=== PATIENT | female | born 1990 | race American Indian/Alaskan Native ===

== ENCOUNTER 2022-02-27 14:02 | Emergency (ER) | payer MEDICAID ==
[2022-02-27 14:18] VITALS: BP 142/76
== END 2022-02-27 19:00 | disposition left against medical advice (07) ==
LOC: ED 14:02
DX: R07.9 Chest pain, unspecified (principal); R05.9 Cough, unspecified; Z53.21 Procedure and treatment not carried out due to patient leaving prior to being seen by health care provider

== ENCOUNTER 2022-03-06 10:19 | Emergency (ER) | payer MEDICAID ==
--- NOTE | 2022-03-06 12:20 | XRay Report ---
XR chest routine 2V INDICATION / CLINICAL INFORMATION: cough COMPARISON: None available. FINDINGS: SUPPORT DEVICES: None. HEART / MEDIASTINUM: No significant abnormality. LUNGS / PLEURA: Lungs are clear. Costophrenic sulci are sharp. No pneumothorax. ADDITIONAL FINDINGS: No significant additional findings. IMPRESSION: 1. No acute findings. Signer Name: Wei Wick MD Signed: 03/06/2022 12:15 PM Workstation Name: [email or web address]
--- NOTE | 2022-03-06 12:49 | Emergency Department Report ---
- General Chief Complaint: Sore Throat Stated Complaint: EAR,THROAT,NOSE,CHEST HURTING Time Seen by Provider: 03/06/22 10:44 Source: patient Mode of arrival: Ambulatory Limitations: No Limitations - History of Present Illness Initial Comments: This is a 31-year-old female nontoxic, well nourished in appearance, no acute signs of distress presents to the ED with c/o of productive cough,earache, body aches, rhinorrhea, nasal congestion x several days. Patient describes productive cough as yellow mucus production. Patient denies any sick contacts. Stated is covid vaccinated. Patient denies any recent travels, long car, recent hospital stays. Patient denies any calf pain or calf tenderness. Patient denies any chest pain, short of breath, fever, chills, nausea, vomiting, hemoptysis, numbness, tingling, headache or stiff neck. Allergies to morphine. MD Complaint: cough, rhinorrhea, nasal congestion, sinus pain, other (earache) -: days(s) Severity: mild Severity scale (0 -10): 3 Quality: aching Consistency: constant Improves With: nothing Worsens With: nothing Associated Symptoms: rhinorrhea, nasal congestion, cough, ear pain. denies: fever, chills, myalgias, diaphoresis, headache, sore throat, stiff neck, chest pain, shortness of breath, abdominal pain, nausea, vomiting, diarrhea, dysuria, rash, confusion, right sweats, weight loss, epistaxis, hoarseness - Related Data Previous Rx's Medication Instructions Recorded Last Taken Type Amoxicillin [Amoxicillin TAB] 875 mg PO BID #20 tab 03/06/22 Unknown Rx Allergies Allergy/AdvReac Type Severity Reaction Status Date / Time morphine Allergy Unknown Verified 03/06/22 10:47 ED Review of Systems ROS: Stated complaint: EAR,THROAT,NOSE,CHEST HURTING Other details as noted in HPI Comment: All other systems reviewed and negative Constitutional: denies: chills, fever Eyes: denies: eye pain, eye discharge, vision change ENT: ear pain, congestion. denies: throat pain Respiratory: cough. denies: shortness of breath, wheezing Cardiovascular: denies: chest pain, palpitations Endocrine: no symptoms reported Gastrointestinal: denies: abdominal pain, nausea, diarrhea Genitourinary: denies: urgency, dysuria, discharge Musculoskeletal: denies: back pain, joint swelling, arthralgia Skin: denies: rash, lesions Neurological: denies: headache, weakness, paresthesias Psychiatric: denies: anxiety, depression Hematological/Lymphatic: denies: easy bleeding, easy bruising ED Past Medical Hx - Social History Smoking Status: Former Smoker Substance Use Type: Alcohol - Medications Home Medications: Home Medications Medication Instructions Recorded Confirmed Last Taken Type Amoxicillin [Amoxicillin TAB] 875 mg PO BID #20 tab 03/06/22 Unknown Rx ED Physical Exam - General Limitations: No Limitations General appearance: alert, in no apparent distress - Head Head exam: Present: atraumatic, normocephalic - Eye Eye exam: Present: normal appearance - ENT ENT exam: Present: normal exam, normal orophraynx - Expanded ENT Exam Expanded TM/Canal exam: Erythema: Right TM, Bulging: Right TM Mouth exam: Present: normal external inspection. Absent: drooling, trismus, muffled voice Teeth exam: Present: normal inspection Throat exam: Positive: normal inspection. Negative: tonsillar erythema, tonsillomegaly, tonsillar exudate, R peritonsillar mass, L peritonsillar mass - Neck Neck exam: Present: normal inspection, full ROM. Absent: tenderness, meningismus, lymphadenopathy - Respiratory Respiratory exam: Present: normal lung sounds bilaterally. Absent: respiratory distress, wheezes, rales, rhonchi, stridor, chest wall tenderness, accessory muscle use, decreased breath sounds, prolonged expiratory - Cardiovascular Cardiovascular Exam: Present: normal rhythm, normal heart sounds. Absent: irregular rhythm, systolic murmur, diastolic murmur, rubs, gallop - Extremities Exam Extremities exam: Present: full ROM - Back Exam Back exam: Present: full ROM - Neurological Exam Neurological exam: Present: alert, oriented X3, normal gait - Psychiatric Psychiatric exam: Present: normal affect, normal mood - Skin Skin exam: Present: warm, dry, intact, normal color. Absent: rash ED Course Vital Signs 03/06/22 10:43 Temperature 99.1 F Pulse Rate 120 H Respiratory 18 Rate Blood Pressure 145/73 [Left] O2 Sat by Pulse 99 Oximetry - Reevaluation(s) Reevaluation #1: 03/06/22 12:50 Patient is speaking in full sentences with no signs of distress noted. ED Medical Decision Making - Radiology Data [facility] [address] [place] [address] XRay Report Signed Patient: LATANYA MARISCAL MR#: [id number] : 1990 Acct:[id number] Age/Sex: 31 / F ADM Date: 03/06/22 Loc: ED Attending Dr: Ordering Physician: MOE MCKEON NP Date of Service: 03/06/22 Procedure(s): XR chest routine 2V Accession Number(s): [id number] cc: MOE MCKEON NP Fluoro Time In Minutes: XR chest routine 2V INDICATION / CLINICAL INFORMATION: cough COMPARISON: None available. FINDINGS: SUPPORT DEVICES: None. HEART / MEDIASTINUM: No significant abnormality. LUNGS / PLEURA: Lungs are clear. Costophrenic sulci are sharp. No pneumothorax. ADDITIONAL FINDINGS: No significant additional findings. IMPRESSION: 1. No acute findings. Signer Name: Wei Wick MD Signed: 03/06/2022 12:15 PM Workstation Name: [id number] Transcribed By: CS Dictated By: Wei Wick MD Electronically Authenticated By: Wei Wick MD Signed Date/Time: 03/06/22 121 DD/ 14 TD/TT: - Medical Decision Making This is a 31-year-old female that presents with otitis media, cough, and upper resp infection. Patient is stable and was examined by me. Chest x-ray has been obtained and dictated by radiologist with normal exam. Patient is notified of x-ray results with no questions noted. Patient does not meet clinical concerns of COVID-19 but patient was instructed and educated on signs and symptoms and to self quarantine and seek medical attention as soon as possible if symptoms does occur. Patient was instructed to increase hydration, rest and take Motrin for fever episodes. Vitals stable. Patient is nonfebrile and normal heart rate. Patient was instructed Follow-up with a primary care doctor in 3-5 days or if symptoms worsen and continue return to emergency room as soon as possible. At time time of discharge, the patient does not seem toxic or ill in appearance. No acute signs of distress noted. Patient agrees to discharge treatment plan of care. No further questions noted by the patient.nt. Critical care attestation.: If time is entered above; I have spent that time in minutes in the direct care of this critically ill patient, excluding procedure time. ED Disposition Clinical Impression: Cough Qualifiers: Cough type: acute Qualified Code(s): R05.1 - Acute cough Otitis media Qualifiers: Otitis media type: unspecified Chronicity: acute Qualified Code(s): H66.90 - Otitis media, unspecified, unspecified ear Upper respiratory infection Qualifiers: URI type: unspecified URI Qualified Code(s): J06.9 - Acute upper respiratory infection, unspecified Disposition: 01 HOME / SELF CARE / HOMELESS Is pt being admited?: No Does the pt Need Aspirin: No Condition: Stable Instructions: Otitis Media, Adult, Cough, Adult Additional Instructions: Follow-up with a primary care doctor in 3-5 days or if symptoms worsen and continue return to emergency room as soon as possible. Prescriptions: Amoxicillin [Amoxicillin TAB] 875 mg PO BID #20 tab Referrals: LUIS M ENRIQUEZ MD [Primary Care Provider] - 3-5 Days PRIMARY MD AMEENA [Referring] - 3-5 Days Time of Disposition: 12:55
[2022-03-06 13:06] VITALS: BP 140/81
== END 2022-03-06 13:06 | disposition home or self-care (01) ==
LOC: ED 10:19
DX: R05.9 Cough, unspecified (principal); H66.90 Otitis media, unspecified, unspecified ear; J06.9 Acute upper respiratory infection, unspecified
CPT/HCPCS: 71046; 99283